=== PATIENT | male | born 1960 | race Caucasian/White ===

== ENCOUNTER 2016-11-27 09:06 | Emergency (ER) | payer BC ==
[~2016-11-27] VITALS: Ht 165.1 cm; Wt 89.0 kg
[~2016-11-27 09:06] MED LIST: AMLO2.5T78 PO; ASPI-664 PO; ATOR20TA38 PO; ERGO500037 PO; LOSA50TA6 PO; RANI150T9 PO
[2016-11-27 09:08] VITALS: Ht 165.1 cm; Wt 89.0 kg
[2016-11-27] MEDS ORDERED: NICARDipine HCL 30 MG CAPSULE PO ONE (09:30)
[2016-11-27 09:55] VITALS: BP 152/72; PULSE 83
--- NOTE | 2016-11-27 12:08 | ERD ---
ER Documentation Chief Complaint Date/Time DATE: 11/27/16 TIME: 12:07 Chief Complaint asymptomatic htn HPI Patient is a 56-year-old male with hypertension and cholesterol who presents with high blood pressure. The patient takes medicine for his blood pressure. He did take it today as well. He denies chest pain or shortness of breath. He denies headache. His blood pressure started being elevated yesterday. Upon review of old medical records this is the patient's fifth visit to the ER since 2016. He has a primary doctor who he plans to see today. ROS All systems reviewed and are negative except as per history of present illness. Medications Home Meds Active Scripts Ranitidine Hcl* (Zantac*) 150 Mg Tablet, 150 MG PO BID Y for EPIGASTRIC PAIN, # 30 TAB Prov:CHLOÉ KENDALL DO 04/29/16 Atorvastatin Calcium* (Atorvastatin Calcium*) 20 Mg Tab, 20 MG PO HS for 30 Days , TAB 2 Refills Prov:ROMEO SUNSHINE S. 03/05/15 Reported Medications Ergocalciferol (Vitamin D2) (VITAMIN D2) 50,000 Unit Capsule, [address] UNIT PO Q7 DAYS, CAP 04/28/16 Amlodipine Besylate* (Amlodipine Besylate*) 2.5 Mg Tablet, 2.5 MG PO DAILY Y for ELEVATED BLOOD PRESSURE, #30 TAB 04/28/16 Losartan Potassium* (Losartan Potassium*) 50 Mg Tablet, 50 MG PO DAILY, TAB 04/28/16 Aspirin* (Aspirin* EC) 81 Mg Tablet.dr, 81 MG PO DAILY STOPPED TAKING 2-18-17 FOR ENDOSCOPY 06/25/15 Allergies Allergies: Coded Allergies: No Known Allergy (Unverified , 04/28/16) PMhx/Soc History of Surgery: Yes (right shoulder) Anesthesia Reaction: No Hx Neurological Disorder: No Hx Respiratory Disorders: No Hx Cardiac Disorders: Yes (HTN, HYPERLIPIDEMIA ) Hx Psychiatric Problems: No Hx Miscellaneous Medical Probl: Yes (chronic back pain) Hx Alcohol Use: Yes (occassional) Hx Substance Use: No Hx Tobacco Use: Yes (quit 2014) Smoking Status: Current some day smoker FmHx Family History: No diabetes Physical Exam Vitals Vital Signs Date Time Temp Pulse Resp B/P Pulse Ox O2 Delivery O2 Flow Rate FiO2 11/27/16 09:55 83 152/72 11/27/16 09:08 98.5 89 18 198/89 99 Physical Exam Const: No acute distress Head: Atraumatic Eyes: Normal Conjunctiva ENT: Normal External Ears, Nose and Mouth. Neck: Full range of motion..~ No meningismus. Resp: Clear to auscultation bilaterally Cardio: Regular rate and rhythm, no murmurs Abd: Soft, non tender, non distended. Normal bowel sounds Skin: No petechiae or rashes Back: No midline or flank tenderness Ext: No cyanosis, or edema Neur: Awake and alert Psych: Normal Mood and Affect Results 24 hrs Current Medications Medications (Trade) Dose Ordered Sig/Caryn Route PRN Reason Start Time Stop Time Status Last Admin Dose Admin Nicardipine HCl (Cardene) 30 mg ONCE ONCE PO 11/27/16 09:30 11/27/16 09:31 DC Procedures/MDM EKG read by me: Rate/Rhythm: Regular rate and rhythm at a normal rate Intervals: Normal Impression: No evidence of ischemia or arrhythmia Smoking Cessation Therapy: Pt. was lectured for greater than 3 minutes on the health risks of continued smoking and the benefits of cessation. Patient is a 56-year-old male with hypertension who presents with hypertension. He has no symptoms at this time. I doubt acute coronary syndrome or stroke. I doubt serious hypertensive emergency. The patient was going to be given Cardene for elevated blood pressure but his blood pressure was improved on recheck and so Cardene was held. The patient already took his primary blood pressure medicines today. The patient will be discharged and can follow-up with his primary doctor within 24-48 hours. The patient said that he plans to go to his primary doctor today. He can return for any worsening symptoms. Departure Diagnosis: Primary Impression: Hypertension Hypertension type: essential hypertension Qualified Code: I10 - Essential hypertension Condition: Fair Patient Instructions: High Blood Pressure (Hypertension) Referrals: CIRO RINALDI (PCP) Additional Instructions: FOLLOW UP WITH YOUR PRIMARY CARE PHYSICIAN TOMORROW.Return to this facility if you are not improving as expected. ALESHIA FONSECA MD Nov 27, 2016 12:08
== END 2016-11-27 10:14 | disposition home or self-care (01) ==
LOC: E/R 09:06
DX: I10 Essential (primary) hypertension (principal); F17.210 Nicotine dependence, cigarettes, uncomplicated; Z79.82 Long term (current) use of aspirin
CPT/HCPCS: 93005